=== PATIENT | male | born 1955 | race Caucasian/White ===

== ENCOUNTER 2025-04-30 05:37 | Emergency (ER) | payer OTHER ==
[2025-04-30 05:52] VITALS: TEMP 97.8; BMI 31.6
[2025-04-30 06:47] LABS: EPI CELLS 18 /uL (0-25.1); HYALINE CASTS 2 /uL (0-3.1); URINE APPEARANCE TURBID; URINE BILIRUBIN 2+ (NEGATIVE); URINE COLOR ORANGE; URINE GLUCOSE (UA) NEGATIVE (NEGATIVE); URINE KETONE NEGATIVE (NEGATIVE); URINE LEUK ESTERASE 2+ (NEGATIVE); URINE NITRITE POSITIVE (NEGATIVE); URINE PROTEIN 2+ (NEGATIVE); URINE UROBILINOGEN 1.0 mg/dL (0.2-1.0); URINE WBC 6725 /uL (0-25.8)
[2025-04-30] MEDS ORDERED: ACETAMINOPHEN INJECTION 100 ML ONE (08:03)
[2025-04-30] MEDS: ACETAMINOPHEN 1000 MG/100 ML BAG IVPB ONE (08:43)
[2025-04-30 08:48] LABS: URINE BACTERIA 206 /uL (0-1359); URINE RBC 121 /uL (0-23.9); YEAST NONE SEEN (NEGATIVE)
[2025-04-30 08:54] LABS: MCHC 33.3 g/dl (32.3-36.5); MEAN CELL VOLUME 93.2 fl (79.0-92.2); MEAN PLT VOLUME 10.4 fl (9.4-12.4); RDW 12.7 % (12.2-16.4)
[2025-04-30 09:03] LABS: GLUCOSE,RANDOM 126.0 mg/dL (74-106); TOT PROT 8.0 g/dl (6.4-8.2)
[2025-04-30 09:04] LABS: CO2 24.0 mmol/L (21-32)
[2025-04-30 09:05] LABS: ALK PHOS 48.0 U/L (40-150)
[2025-04-30 09:08] LABS: SGOT/AST 51.0 U/L (5-34); SGPT/ALT 53.0 U/L (0-55)
[2025-04-30 09:09] LABS: CREATININE 1.53 mg/dL (0.55-1.3)
[2025-04-30 09:29] LABS: HCV DIAGNOSTIC IN-HOUSE W/RFLX NON-REACTIVE (NONREACTIVE)
[2025-04-30 09:30] LABS: HIV INTERPRETATION NEGATIVE (NEGATIVE)
[2025-04-30 10:24] VITALS: RESP 16
[2025-04-30] MEDS ORDERED: CEFTRIAXONE 1 GM/50 ML BAG ONE (10:49)
[2025-04-30 12:34] VITALS: BP 99/54; PULSE 81
== END 2025-04-30 12:40 | disposition home or self-care (01) ==
LOC: JER 05:37
PROC: 3E033NZ Introduction of Analgesics, Hypnotics, Sedatives into Peripheral Vein, Percutaneous Approach (ICD-10-PCS; principal; 2025-04-30)
PROC: 3E03329 Introduction of Other Anti-infective into Peripheral Vein, Percutaneous Approach (ICD-10-PCS; 2025-04-30)
DX: N39.0 Urinary tract infection, site not specified (principal); R10.30 Lower abdominal pain, unspecified; R30.0 Dysuria; R39.15 Urgency of urination; R32 Unspecified urinary incontinence; R31.9 Hematuria, unspecified; R35.0 Frequency of micturition
CPT/HCPCS: 36415; 74177-TC; 80053; 81003; 85025; 86803; 87086; 87389; 99284-25